=== PATIENT | male | born 2000 | race Caucasian/White ===

== ENCOUNTER 2022-11-14 11:41 | Emergency (ER) | payer OTHER ==
[~2022-11-14] VITALS: Ht 195.6 cm; Wt 81.8 kg
[2022-11-14] MEDS ORDERED: TETANUS, DIPHTHERIA, PERTUSSIS VAC/PF 0.5ML (>10YR OLD) IM ONE (14:15)
[2022-11-14 14:46] LABS: BASOPHILS % 0.1 % (0.0-2.0); EOSINOPHILS % 1.3 % (0.0-5.0); HEMOGLOBIN. 15.6 g/dL (14.0-18.0); LYMPHOCYTES % 27.7 % (20.0-50.0); MEAN CORPUSCULAR HEMOGLOBIN 31.2 pg (28.0-32.0); MEAN CORPUSCULAR VOLUME 89.9 fL (80.0-94.0); MEAN PLATELET VOLUME 7.9 fl (7.4-10.4); MONOCYTES % 9.7 % (2.0-8.0); NEUTROPHILS % 61.2 % (40.0-76.0); PLATELET 231 x1000/uL (130-400); RED CELL DISTRIBUTION WIDTH 12.9 % (11.6-14.6)
[2022-11-14 14:51] LABS: CHLORIDE 92 mEq/L (98-107)
[2022-11-14 14:59] LABS: ETHANOL BLOOD < 10 mg/dL
[2022-11-14 17:19] VITALS: BP 135/82
[2022-11-16 08:09] LABS: HIV SCREEN 4G Non Reactive (Non Reactive)
== END 2022-11-14 17:21 | disposition home or self-care (01) ==
LOC: ER 11:41
DX: S00.83XA Contusion of other part of head, initial encounter (principal); S90.822A Blister (nonthermal), left foot, initial encounter; S90.821A Blister (nonthermal), right foot, initial encounter; Y04.2XXA Assault by strike against or bumped into by another person, initial encounter; Y93.89 Activity, other specified; Y92.488 Other paved roadways as the place of occurrence of the external cause; Y99.8 Other external cause status
CPT/HCPCS: 36415; 80053; 80320; 85025; 87389; 90471; 90715; 99285; G0480